=== PATIENT | female | born 1985 | race Caucasian/White ===

== ENCOUNTER 2016-11-26 17:58 | Emergency (ER) | payer MEDICARE, OTHER ==
[2016-11-26 18:41] VITALS: RESP 18
[2016-11-26] MEDS ORDERED: SODIUM CHLORIDE 0.9% 1,000 ML IV STA (20:00)
[2016-11-26] MEDS ORDERED: DICYCLOMINE 10 MG/ML 2 ML AMP IM STA (20:00)
[2016-11-26] MEDS ORDERED: ONDANSETRON 4 MG/2 ML VIAL IVP STA (20:00)
--- NOTE | 2016-11-26 20:11 | ED ---
Abdominal Pain HPI - General Chief Complaint: Abdominal Pain Stated Complaint: upper right abd pain Time Seen by Provider: 11/26/16 19:44 Source: patient, RN notes reviewed Mode of arrival: ambulatory Limitations: no limitations - History of Present Illness Initial Comments: 31 yo female presents to the ER with cc of right upper quadrant abdominal pain. Patient states she's had this pain for the past 2 or 3 days. Patient states in the right upper quadrant. Patient states has been some diarrhea with it as well as nausea vomiting. Patient denies any fever chills. Patient states every time she eats it causes some increased pain. Patient states she was concerned due to the continued pain so she thought that she should be evaluated. Patient denies any recent fever, chills, shortness of breath, chest pain, back pain, numbness or tingling, dysuria or hematuria, constipation or diarrhea, headaches or visual changes, or any other current symptoms. - Related Data Home Medications Medication Instructions Recorded Confirmed ALPRAZolam [Xanax] 0.25 mg PO TID PRN 11/26/16 11/26/16 ARIPiprazole [Abilify] 5 mg PO DAILY 11/26/16 11/26/16 Acetaminophen [Tylenol Arthritis] 650 mg PO Q8H PRN 11/26/16 11/26/16 Cyclobenzaprine [Flexeril] 10 mg PO HS PRN 11/26/16 11/26/16 Famotidine [Pepcid] 20 mg PO BID 11/26/16 11/26/16 Levothyroxine Sodium [Synthroid] 50 mcg PO DAILY 11/26/16 11/26/16 Progesterone,Micronized 200 mg PO DAILY 11/26/16 11/26/16 [Progesterone] Venlafaxine HCl [Effexor XR] 150 mg PO DAILY 11/26/16 11/26/16 oxyCODONE-APAP 5-325MG [Percocet 1 tab PO DAILY PRN 11/26/16 11/26/16 5-325 mg] Previous Rx's Medication Instructions Recorded Dicyclomine [Bentyl] 10 mg PO TID #20 capsule 11/26/16 Famotidine [Pepcid] 20 mg PO BID #10 tablet 11/26/16 Ondansetron Odt [Zofran ODT] 4 mg PO Q8HR PRN #20 tab 11/26/16 Allergies Allergy/AdvReac Type Severity Reaction Status Date / Time cetirizine [From Zyrtec] Allergy Rash/Hives Verified 11/26/16 19:51 Iodinated Contrast Media - Allergy Rash/Hives Verified 11/26/16 19:51 Oral and Review of Systems ROS Statement: Those systems with pertinent positive or pertinent negative responses have been documented in the HPI. ROS Other: All systems not noted in ROS Statement are negative. Past Medical History Past Medical History: Thyroid Disorder History of Any Multi-Drug Resistant Organisms: None Reported Past Surgical History: Hysterectomy, Joint Replacement Past Psychological History: Bipolar, Depression Smoking Status: Former smoker Past Alcohol Use History: Rare Past Drug Use History: None Reported General Exam - General Exam Comments Initial Comments: General: The patient is awake and alert, in no distress, and does not appear acutely ill. Eye: Pupils are equal, round and reactive to light, extra-ocular movements are intact; there is normal conjunctiva bilaterally. No signs of icterus. Ears, nose, mouth and throat: There are moist mucous membranes and no oral lesions. Neck: The neck is supple, there is no tenderness. Cardiovascular: There is a regular rate and rhythm. No murmur, rub or gallop is appreciated. Respiratory: Lungs are clear to auscultation, respirations are non-labored, breath sounds are equal. No wheezes, stridor, rales, or rhonchi. Gastrointestinal: Soft, non-distended, right upper quadrant tenderness of the abdomen without masses or organomegaly noted. There is no rebound or guarding present. No CVA tenderness. Bowel sounds are unremarkable. Back: There is no tenderness to palpation in the midline. There is no obvious deformity. No rashes noted. Musculoskeletal: Normal ROM, no tenderness, There is no pedal edema. There is no calf tenderness or swelling. Sensation intact. Pulses equal bilaterally 2+. Neurological: CN II-XII intact, There are no obvious motor or sensory deficits. Coordination appears grossly intact. Speech is normal. Skin: Skin is warm and dry and no rashes or lesions are noted. Psychiatric: Cooperative, appropriate mood & affect, normal judgment. Limitations: no limitations Course Vital Signs 11/26/16 11/26/16 18:38 21:44 Temperature 98.2 F 98.3 F Pulse Rate 109 H 85 Respiratory 18 18 Rate Blood Pressure 145/89 131/78 O2 Sat by Pulse 97 99 Oximetry Medical Decision Making - Medical Decision Making 31-year-old female presents emergency department with chief complaint abdominal pain. This patient's imaging doesn't show any acute process the patient Plavix otherwise negative. Patient at this time is feeling better with the medication. Some discussed with the for Ruth and Ollie for home. We discussed diet we discussed follow-up discussed return parameters. All patient' s questions have been answered. Discharged the patient. - Lab Data Result diagrams: 11/26/16 20:18 11/26/16 20:18 Lab Results 11/26/16 11/26/16 11/26/16 Range/Units 20:18 20:18 20:18 WBC 9.9 (3.8-10.6) k/uL RBC 4.77 (3.80-5.40) m/uL Hgb 14.4 (11.4-16.0) gm/dL Hct 43.2 (34.0-46.0) % MCV 90.6 (80.0-100.0) fL MCH 30.2 (25.0-35.0) pg MCHC 33.4 (31.0-37.0) g/dL RDW 13.5 (11.5-15.5) % Plt Count 440 (150-450) k/uL Neutrophils % 69 % Lymphocytes % 23 % Monocytes % 4 % Eosinophils % 2 % Basophils % 1 % Neutrophils # 6.9 (1.3-7.7) k/uL Lymphocytes # 2.3 (1.0-4.8) k/uL Monocytes # 0.4 (0-1.0) k/uL Eosinophils # 0.2 (0-0.7) k/uL Basophils # 0.1 (0-0.2) k/uL Sodium 140 (137-145) mmol/L Potassium 4.1 (3.5-5.1) mmol/L Chloride 104 (98-107) mmol/L Carbon Dioxide 24 (22-30) mmol/L Anion Gap 12 mmol/L BUN 10 (7-17) mg/dL Creatinine 0.74 (0.52-1.04) mg/dL Est GFR (MDRD) Af Amer >60 (>60 ml/min/1.73 sqM) Est GFR (MDRD) Non-Af >60 (>60 ml/min/1.73 sqM) Glucose 103 H (74-99) mg/dL Calcium 9.9 (8.4-10.2) mg/dL Total Bilirubin 0.6 (0.2-1.3) mg/dL AST 27 (14-36) U/L ALT 32 (9-52) U/L Alkaline Phosphatase 115 (38-126) U/L Total Protein 8.5 H (6.3-8.2) g/dL Albumin 4.8 (3.5-5.0) g/dL Amylase 59 (30-110) U/L Lipase 75 (23-300) U/L Urine Color Urine Appearance (Clear) Urine pH (5.0-8.0) Ur Specific Burnham (1.001-1.035) Urine Protein (Negative) Urine Glucose (UA) (Negative) Urine Ketones (Negative) Urine Blood (Negative) Urine Nitrite (Negative) Urine Bilirubin (Negative) Urine Urobilinogen (<2.0) mg/dL Ur Leukocyte Esterase (Negative) Urine RBC (0-5) /hpf Ur Squamous Epith Cells (0-4) /hpf Urine Bacteria (None) /hpf Urine Mucus (None) /hpf Urine HCG, Qual Not Detected (Not Detectd) 11/26/16 Range/Units 20:18 WBC (3.8-10.6) k/uL RBC (3.80-5.40) m/uL Hgb (11.4-16.0) gm/dL Hct (34.0-46.0) % MCV (80.0-100.0) fL MCH (25.0-35.0) pg MCHC (31.0-37.0) g/dL RDW (11.5-15.5) % Plt Count (150-450) k/uL Neutrophils % % Lymphocytes % % Monocytes % % Eosinophils % % Basophils % % Neutrophils # (1.3-7.7) k/uL Lymphocytes # (1.0-4.8) k/uL Monocytes # (0-1.0) k/uL Eosinophils # (0-0.7) k/uL Basophils # (0-0.2) k/uL Sodium (137-145) mmol/L Potassium (3.5-5.1) mmol/L Chloride (98-107) mmol/L Carbon Dioxide (22-30) mmol/L Anion Gap mmol/L BUN (7-17) mg/dL Creatinine (0.52-1.04) mg/dL Est GFR (MDRD) Af Amer (>60 ml/min/1.73 sqM) Est GFR (MDRD) Non-Af (>60 ml/min/1.73 sqM) Glucose (74-99) mg/dL Calcium (8.4-10.2) mg/dL Total Bilirubin (0.2-1.3) mg/dL AST (14-36) U/L ALT (9-52) U/L Alkaline Phosphatase (38-126) U/L Total Protein (6.3-8.2) g/dL Albumin (3.5-5.0) g/dL Amylase (30-110) U/L Lipase (23-300) U/L Urine Color Colorless Urine Appearance Cloudy H (Clear) Urine pH 6.0 (5.0-8.0) Ur Specific Burnham 1.005 (1.001-1.035) Urine Protein Negative (Negative) Urine Glucose (UA) Negative (Negative) Urine Ketones Negative (Negative) Urine Blood Small H (Negative) Urine Nitrite Negative (Negative) Urine Bilirubin Negative (Negative) Urine Urobilinogen <2.0 (<2.0) mg/dL Ur Leukocyte Esterase Negative (Negative) Urine RBC 2 (0-5) /hpf Ur Squamous Epith Cells 6 H (0-4) /hpf Urine Bacteria Occasional H (None) /hpf Urine Mucus Rare H (None) /hpf Urine HCG, Qual (Not Detectd) - Radiology Data Radiology results: report reviewed, image reviewed Disposition Clinical Impression: Right sided abdominal pain Disposition: HOME SELF-CARE Condition: Stable Instructions: Abdominal Pain (ED) Additional Instructions: Please use medication as discussed. Please follow up with family doctor if symptoms have not improved over the next two days. Please return to the emergency room if your symptoms increase or worsen or for any other concerns. Prescriptions: Dicyclomine [Bentyl] 10 mg PO TID #20 capsule Famotidine [Pepcid] 20 mg PO BID #10 tablet Ondansetron Odt [Zofran ODT] 4 mg PO Q8HR PRN #20 tab PRN Reason: Nausea Referrals: Randy Westbrook MD [Primary Care Provider] - 1-2 days Time of Disposition: 22:22
[2016-11-26 20:32] LABS: Basophils # (A) 0.1 k/uL (0-0.2); Basophils % (A) 1 %; CH 30.5; CHCM 33.8; Eosinophils # (A) 0.2 k/uL (0-0.7); Eosinophils % (A) 2 %; HCT 43.2 % (34.0-46.0); HDW 2.36; HGB 14.4 gm/dL (11.4-16.0); Luc # (Auto) 0.19; Luc % (Auto) 2; Lymphocytes # (A) 2.3 k/uL (1.0-4.8); Lymphocytes % (A) 23 %; MCH 30.2 pg (25.0-35.0); MCHC 33.4 g/dL (31.0-37.0); MCV 90.6 fL (80.0-100.0); Mean Platelet Volume 6.1; Monocytes # (A) 0.4 k/uL (0-1.0); Monocytes % (A) 4 %; Neutrophils # (A) 6.9 k/uL (1.3-7.7); Neutrophils % (A) 69 %; RBC 4.77 m/uL (3.80-5.40); RDW 13.5 % (11.5-15.5); WBC 9.9 k/uL (3.8-10.6); WBC (Perox) 9.89
[2016-11-26 20:36] LABS: Appearance,Urine Cloudy (Clear); Bacteria,Urine Occasional /hpf; Bilirubin,Urine Negative (Negative); Glucose,Urine (UA) Negative (Negative); Ketones,Urine Negative (Negative); Leukocyte Esterase,Urine Negative (Negative); Mucus,Urine Rare /hpf; Nitrite,Urine Negative (Negative); Particle Count 1748; Protein,Urine Negative (Negative); RBC,Urine 2 /hpf (0-5); Specific Gravity,Urine 1.005 (1.001-1.035); Squamous Epithelial Cell,Urine 6 /hpf (0-4); UA Billing (MACRO vs. MICRO) MICRO; Urobilinogen,Urine <2.0 mg/dL (<2.0)
[2016-11-26 20:42] LABS: ALT 32 U/L (9-52); AST 27 U/L (14-36); Alkaline Phosphatase 115 U/L (38-126); Amylase 59 U/L (30-110); Anion Gap 12 mmol/L; Blood Urea Nitrogen 10 mg/dL (7-17); Calcium 9.9 mg/dL (8.4-10.2); Carbon Dioxide 24 mmol/L (22-30); Chloride 104 mmol/L (98-107); Glucose 103 mg/dL (74-99); Non-African American GFR(MDRD) >60 (>60 ml/min/1.73 sqM); Potassium 4.1 mmol/L (3.5-5.1); Sodium 140 mmol/L (137-145); Total Bilirubin 0.6 mg/dL (0.2-1.3); Total Protein 8.5 g/dL (6.3-8.2)
--- NOTE | 2016-11-26 21:11 | US ---
EXAMINATION TYPE: US gallbladder DATE OF EXAM: 11/26/2016 9:02 PM COMPARISON: NONE CLINICAL HISTORY: Pain. EXAM MEASUREMENTS: Liver Length: 17.7 cm Gallbladder Wall: 0.2 cm CBD: 0.3 cm Right Kidney: 10.3 x 3.8 x 3.3 cm Pancreas: Obscured by bowel gas Liver: Measuring upper limits of normal, heterogeneous and attenuating- possible fatty liver Gallbladder: No stones or sludge visualized Evidence for sonographic Rangel's sign: Yes CBD: wnl as visualized, distal portion obscured by bowel gas Right Kidney: No hydronephrosis or masses seen IMPRESSION: Negative right upper quadrant abdominal sonogram. No gallstones or dilated ducts.
[2016-11-26] MEDS ORDERED: FAMOTIDINE 20 MG/2 ML VIAL IV STA (21:23)
[2016-11-26 21:46] VITALS: BP 131/78; PULSE 85; TEMP 98.3
--- NOTE | 2016-11-26 22:16 | XR ---
EXAMINATION TYPE: XR abdomen 2V DATE OF EXAM: 11/26/2016 9:12 PM COMPARISON: NONE HISTORY: Right upper quadrant pain TECHNIQUE: 3 views FINDINGS: There is no sign of intestinal obstruction or pneumoperitoneum. Fecal pattern is normal. Maricarmen ng bases are clear. There are no pathologic calcifications over the kidneys. IMPRESSION: Nonacute abdomen.
== END 2016-11-26 22:48 | disposition home or self-care (01) ==
LOC: EC 17:58
DX: R10.11 Right upper quadrant pain (principal); R11.2 Nausea with vomiting, unspecified; R19.7 Diarrhea, unspecified; F31.9 Bipolar disorder, unspecified; E07.9 Disorder of thyroid, unspecified; Z87.891 Personal history of nicotine dependence; Z79.899 Other long term (current) drug therapy; Z91.041 Radiographic dye allergy status; Z88.8 Allergy status to other drugs, medicaments and biological substances
CPT/HCPCS: 36415; 80053; 82150; 83690; 85025; 81001; 81025; 87086; 74020; 76705; 99284; 96374; 96375; 96361; 96372; J0500; J2405

== ENCOUNTER 2016-11-27 13:01 | Emergency (ER) | payer MEDICARE, OTHER ==
[2016-11-27] MEDS ORDERED: DICYCLOMINE 10 MG/ML 2 ML AMP IM STA (14:14)
--- NOTE | 2016-11-27 14:18 | ED ---
General Adult HPI - General Chief complaint: Abdominal Pain Stated complaint: Abd Pain Time Seen by Provider: 11/27/16 13:58 Source: patient, RN notes reviewed, old records reviewed Mode of arrival: ambulatory Limitations: no limitations - History of Present Illness Initial comments: Patient a 31-year-old female who presents emergency room today with chief complaint of increased right upper quadrant pain 3 weeks. Patient does admit that she was seen here in the emergency room for this complaint yesterday. States she had an ultrasound done which was negative for any evidence of cholecystitis. Patient states had increased pain today after eating lunch this afternoon. Patient does admit to symptoms of nausea. States she had Zofran at home that she's been using with some relief. Patient does also admit to diarrhea. She states she was given a prescription for Bentyl which she has not picked up from the pharmacy yet. Patient states his symptoms are consistent symptoms she's been expressing the past 3 weeks. Denies any signs of blood in the stool. Denies any other complaints or symptoms. Patient denies any recent fever, chills, shortness of breath, chest pain, back pain, numbness or tingling , dysuria or hematuria, constipation, headaches or visual changes, or any other complaints. - Related Data Home Medications Medication Instructions Recorded Confirmed ALPRAZolam [Xanax] 0.25 mg PO TID PRN 11/26/16 11/26/16 ARIPiprazole [Abilify] 5 mg PO DAILY 11/26/16 11/26/16 Acetaminophen [Tylenol Arthritis] 650 mg PO Q8H PRN 11/26/16 11/26/16 Cyclobenzaprine [Flexeril] 10 mg PO HS PRN 11/26/16 11/26/16 Famotidine [Pepcid] 20 mg PO BID 11/26/16 11/26/16 Levothyroxine Sodium [Synthroid] 50 mcg PO DAILY 11/26/16 11/26/16 Progesterone,Micronized 200 mg PO DAILY 11/26/16 11/26/16 [Progesterone] Venlafaxine HCl [Effexor XR] 150 mg PO DAILY 11/26/16 11/26/16 oxyCODONE-APAP 5-325MG [Percocet 1 tab PO DAILY PRN 11/26/16 11/26/16 5-325 mg] Previous Rx's Medication Instructions Recorded Dicyclomine [Bentyl] 10 mg PO TID #20 capsule 11/26/16 Famotidine [Pepcid] 20 mg PO BID #10 tablet 11/26/16 Ondansetron Odt [Zofran ODT] 4 mg PO Q8HR PRN #20 tab 11/26/16 Omeprazole 20 mg PO DAILY 10 Days 11/27/16 Allergies Allergy/AdvReac Type Severity Reaction Status Date / Time cetirizine [From Zyrtec] Allergy Rash/Hives Verified 11/27/16 13:31 Iodinated Contrast Media - Allergy Rash/Hives Verified 11/27/16 13:31 Oral and Review of Systems ROS Statement: Those systems with pertinent positive or pertinent negative responses have been documented in the HPI. ROS Other: All systems not noted in ROS Statement are negative. Past Medical History Past Medical History: Thyroid Disorder History of Any Multi-Drug Resistant Organisms: None Reported Past Surgical History: Hysterectomy, Joint Replacement Past Psychological History: Bipolar, Depression Smoking Status: Former smoker Past Alcohol Use History: Rare Past Drug Use History: None Reported General Exam - General Exam Comments Initial Comments: General: The patient is awake and alert, in no distress, and does not appear acutely ill. Eye: Pupils are equal, round and reactive to light, extra-ocular movements are intact. No nystagmus. There is normal conjunctiva bilaterally. No signs of icterus. Ears, nose, mouth and throat: There are moist mucous membranes and no oral lesions. Neck: The neck is supple, there is no tenderness or JVD. Cardiovascular: There is a regular rate and rhythm. No murmur, rub or gallop is appreciated. Respiratory: Lungs are clear to auscultation, respirations are non-labored, breath sounds are equal. No wheezes, stridor, rales, or rhonchi. Gastrointestinal: Normal appearance abdomen. Normal bowel sounds. Abdomen soft on palpation. Patient does have tenderness right upper quadrant. No rebound tenderness. No guarding. No CVA tenderness. Musculoskeletal: Normal ROM, no tenderness. Strength 5/5. Sensation intact. Pulses equal bilaterally 2+. Neurological: A&O x 3. CN II-XII intact, There are no obvious motor or sensory deficits. Coordination appears grossly intact. Speech is normal. Skin: Skin is warm and dry and no rashes or lesions are noted. Psychiatric: Cooperative, appropriate mood & affect, normal judgment. Limitations: no limitations Course Vital Signs 11/27/16 13:29 Temperature 97.5 F L Pulse Rate 78 Respiratory 20 Rate Blood Pressure 134/77 O2 Sat by Pulse 99 Oximetry Medical Decision Making - Medical Decision Making Patient's labs from 1 day ago were reviewed. No elevated white count. Her ultrasound revealed no evidence of gallstones. No signs of acute cholecystitis. X-ray was negative for any acute abnormalities. Patient does admit to pain right upper quadrant worse after eating lunch today. She does admit that it seems to be worse when she eats. It was discussed with patient about having outpatient HIDA scan. Also advised patient follow-up with GI. She does admit that Bentyl yesterday helped relieve some of her symptoms. Discussed about possible GI viral illness. Advised patient to continue Bentyl. Patient agreeable to shot here in the emergency room Bentyl for her symptoms. Given GI follow-up with. Also started on omeprazole for her symptoms. Patient advised return if any symptoms increase worsen. Disposition Clinical Impression: Abdominal pain Disposition: HOME SELF-CARE Condition: Good Instructions: Abdominal Pain (ED) Additional Instructions: Please use medications that were previously prescribed along with omeprazole today. Please follow-up with GI as discussed. Please return to emergency room if any symptoms increase or worsen or for any other concerns. Prescriptions: Omeprazole 20 mg PO DAILY 10 Days Referrals: Randy Westbrook MD [Primary Care Provider] - 1-2 days Ana Bhagat MD [STAFF PHYSICIAN] - 1-2 days Time of Disposition: 14:17
[2016-11-27 14:53] VITALS: BP 127/80; PULSE 74; RESP 18; TEMP 97.9
== END 2016-11-27 14:52 | disposition home or self-care (01) ==
LOC: EC 13:01
DX: R10.11 Right upper quadrant pain (principal); R11.0 Nausea; R19.7 Diarrhea, unspecified; E07.9 Disorder of thyroid, unspecified; F31.9 Bipolar disorder, unspecified; Z91.041 Radiographic dye allergy status; Z90.710 Acquired absence of both cervix and uterus; Z88.8 Allergy status to other drugs, medicaments and biological substances; Z87.891 Personal history of nicotine dependence; Z79.899 Other long term (current) drug therapy
CPT/HCPCS: 99284; 96372; J0500

== ENCOUNTER → 2018-05-18 | Outpatient (CLI) | payer MEDICARE, OTHER ==
--- NOTE | 2018-05-18 11:02 | US ---
EXAMINATION TYPE: US kidneys/renal and bladder DATE OF EXAM: 05/18/2018 COMPARISON: RUQ US CLINICAL HISTORY: R31.9 Hematuria, R10.9 Left flank pain. EXAM MEASUREMENTS: Right Kidney: 10.0 x 4.9 x 4.0 cm Left Kidney: 10.6 x 4.9 x 6.3 cm Post Void Residual Volume: 0 mL Right Kidney: No hydronephrosis or masses seen Left Kidney: No hydronephrosis or masses seen Bladder: wnl Bilateral Jets seen: yes Normal Post Void Residual: yes There is no evidence for hydronephrosis at this point in time. No nephrolithiasis is seen. No aura s are identified. The urinary bladder is anechoic. Bilateral ureteral jets are seen. IMPRESSION: No hydronephrosis or suspicious finding is seen to account for patient's symptoms.
== END ==
LOC: RADUSWWP 10:03
PROVIDERS: ATTEND Internal Medicine
DX: R10.9 Unspecified abdominal pain (principal); R31.9 Hematuria, unspecified
CPT/HCPCS: 76770

== ENCOUNTER → 2018-06-09 | Outpatient (CLI) | payer MEDICARE, OTHER ==
[2018-06-09 14:05] LABS: Blood Urea Nitrogen 15 mg/dL (7-17); C Reactive Protein 8.7 mg/L (<10.0)
[2018-06-09 20:39] LABS: DNA Double-Stranded Indetermin (NEGATIVE)
[2018-06-09 21:16] LABS: Rheumatoid Factor 8 IU/mL (0-15)
== END | disposition home or self-care (01) ==
LOC: LABWHC1 11:44
PROVIDERS: ATTEND Psychiatry & Neurology Neurology
DX: R51 Headache (principal)
CPT/HCPCS: 36415; 82565; 84520; 85652; 86038; 86140; 86225; 86431